=== PATIENT | male | born 1935 | race Caucasian/White ===

== ENCOUNTER → 2017-04-19 | Outpatient (CLI) | payer MEDICARE, OTHER ==
[~2017-04-19] MED LIST: ADVIL200 MG PO; BACTRIM DS1 TAB PO; CARDIZEM CD (T120 MG PO; FLOMAX0.4 MG PO; KLOR-CON M2020 MEQ PO; LOVASTATIN40 MG PO; MAGOX 400400 MG PO; MULTI COMPLETE1 EACH PO; NASAL DECONGEST30 ML NOSE; NITROGLYCERIN0.2 MG TOP; PAIN RELIEVER500 MG PO; PRILOSEC20 MG PO; TUMS ULTRA400 MG PO; VOLTAREN75 MG PO
== END | disposition disaster alternative care site (69) ==
LOC: GRAD 10:53
DX: R31.29 Other microscopic hematuria (principal); K80.20 Calculus of gallbladder without cholecystitis without obstruction; K86.89 Other specified diseases of pancreas; N20.0 Calculus of kidney; R10.9 Unspecified abdominal pain; I72.8 Aneurysm of other specified arteries; I70.208 Unspecified atherosclerosis of native arteries of extremities, other extremity
CPT/HCPCS: Q9967

== ENCOUNTER → 2017-05-03 | Day surgery (SDC) | payer MEDICARE, OTHER ==
[~2017-05-03] VITALS: Ht 165.1 cm; Wt 68.0 kg
--- NOTE | ~2017-05-03 | OR ---
PATIENT'S NAME: [facility] AGE: 81 Y [address] ROOM: [place] [address] LOCATION: [facility] [place] DATE: 05/03/2017 OR/Procedure Report DISCHARGE DATE: FAMILY PHYSICIAN: Ermias Butler MD ATTENDING PHYSICIAN: Nona Wild SURGEON: Nona Wild MD FLOOR WAXER: DATE OF PROCEDURE: 05/03/2017 PREOPERATIVE DIAGNOSIS: Bilateral nephrolithiasis. POSTOPERATIVE DIAGNOSIS: Bilateral nephrolithiasis. PROCEDURE PERFORMED: Right extracorporeal shock wave lithotripsy. ANESTHESIA: MAC. COMPLICATIONS: None. INDICATION FOR PROCEDURE: The patient is an 81-year-old male complaining of bilateral flank pain. Abdominopelvic CT scan revealed bilateral nonobstructing stones, greater on the right. DETAILS OF PROCEDURE: After informed consent was obtained, the patient was taken to the operating room. A MAC anesthetic was applied. He was placed in a supine position on the lithotripsy table. First, his 8 x 7 right midpole stone was targeted. He received shocks starting at 16 kilovolts and gradually increased to 24 kilovolts. He received a total of 2700 shocks with good fragmentation of the stone. A small 3 x 4 mm right lower pole was treated with 300 shocks at 24 kilovolts and this also fragmented well. The patient tolerated his procedure well and was transferred to recovery room in good condition. MD TIANNA SANCHEZ/modl /[id number] CC: Ermias Butler MD d: 05/04/17 1235 t: 05/23/17 1010, OPERATIVE SUMMARY
[2017-05-03 13:43] LABS: BASOPHIL % 0.7 %; EOSINOPHIL # 0.2 K/uL (0.0-0.5); EOSINOPHIL % 3.2 %; HEMATOCRIT 40.8 % (33.0-50.0); HEMOGLOBIN 13.3 g/dL (11.0-16.0); IMMATURE GRANULOCYTE % 0.2 %; LYMPHOCYTE # 1.3 K/uL (0.8-4.0); LYMPHOCYTE % 21.9 %; MCH 32.4 pg (27.0-34.0); MCHC 32.6 gm/dL (32.0-36.5); MCV 99.5 fl (83.0-98.0); MONOCYTE # 0.7 K/uL (0.0-1.0); MONOCYTE % 11.2 %; MPV 9.7 fl (9.4-12.4); NEUTROPHIL # (ANC) 3.8 K/uL (1.4-9.0); NEUTROPHIL % 62.8 %; NRBC % 0 /100WBC (0-0.00); PLATELET COUNT 184 K/uL (150-450)
[2017-05-03 14:07] LABS: ALBUMIN 3.1 gm/dL (3.5-5.0); ALK PHOS 110 IU/L (33-138); ALT 22 IU/L (12-78); ANION GAP 13.3 (10.0-19.0); AST 27 IU/L (10-40); BLOOD UREA NITROGEN 15 mg/dL (6-24); CALCIUM 8.9 mg/dL (8.5-10.5); CHLORIDE 107 mMol/L (96-110); CO2 23 mMol/L (22-32); CREATININE 0.8 mg/dL (0.6-1.3); ESTIMATED GFR (MDRD EQUATION) > 60; POTASSIUM 4.3 mMol/L (3.7-5.1); SODIUM 139 mMol/L (135-145); TOTAL BILIRUBIN 0.6 mg/dL (0.0-1.5); TOTAL PROTEIN 6.6 g/dL (6.0-8.4)
== END | disposition disaster alternative care site (69) ==
LOC: GPOC 04-29 10:00 → GSDC 10:00
PROVIDERS: Urology
PROC: 0TF3XZZ Fragmentation in Right Kidney Pelvis, External Approach (ICD-10-PCS; principal; 2017-05-03)
DX: N20.0 Calculus of kidney (principal); I25.10 Atherosclerotic heart disease of native coronary artery without angina pectoris; E78.00 Pure hypercholesterolemia, unspecified; I25.2 Old myocardial infarction; I10 Essential (primary) hypertension; K21.9 Gastro-esophageal reflux disease without esophagitis; M19.90 Unspecified osteoarthritis, unspecified site; E78.5 Hyperlipidemia, unspecified; Z95.1 Presence of aortocoronary bypass graft; Z98.890 Other specified postprocedural states; Z79.899 Other long term (current) drug therapy
CPT/HCPCS: J2001; J7030

== ENCOUNTER → 2017-05-25 | Outpatient (CLI) | payer MEDICARE, OTHER | END | disposition disaster alternative care site (69) | LOC: GRAD 08:50 | DX: N20.0 Calculus of kidney (principal); M47.896 Other spondylosis, lumbar region ==